=== PATIENT | female | born 1995 | race African-American/Black ===

== ENCOUNTER 2019-03-14 17:00 | Emergency (ER) | payer MEDICAID ==
[~2019-03-14] VITALS: Ht 149.9 cm; Wt 61.0 kg
[2019-03-14 18:04] VITALS: BP 115/73
== END 2019-03-14 21:01 | disposition left against medical advice (07) ==
LOC: ER 17:00
DX: Z53.21 Procedure and treatment not carried out due to patient leaving prior to being seen by health care provider (principal)